=== PATIENT | female | born 1995 | race Caucasian/White ===

== ENCOUNTER → 2016-06-19 | Day surgery (SDC) | payer BC ==
[~2016-06-19] MED LIST: FENTANYL PF 100 MCG/2 ML VIAL. IV PRN; IV RINGERS,LACTATED 1000ML 1,000 ML IV SCH; LIDOCAINE 1% 1 ML SYRINGE. ID PRN; LIDOCAINE 2% PF Vial for OR 5 ML VIAL. ONE; MIDAZOLAM HCL 2 MG/2 ML VIAL. IV PRN; PROM50SU7 RC; PROPOFOL 20 ML IV ONE; VANC125C2 PO
[2016-06-19 12:49] LABS: NEG OBC UR NEG; POS OBC UR POS
[2016-06-19 14:09] VITALS: BP 110/60
--- NOTE | 2016-06-20 05:12 | HP ---
ADMIT DATE: 06/19/2016 REFERRING PHYSICIAN: Ciara Holt APRN HISTORY OF PRESENT ILLNESS: A 21-year-old female whose past medical history is significant for C. diff colitis, anemia and recurrent nausea and vomiting associated with persistent upper abdominal pain. It is associated with speech therapist early intervention emesis. Prior colonoscopy and CT scan have been unrevealing ____. Family history is noted for diabetes, but negative for gallbladder disease. test has been negative. ____ has also noted minimal heartburn is present with continued emesis in the morning. The patient had previously undergone hepatobiliary imaging, which did not reveal any pathology with the ultrasound or PIPIDA scan, although the patient states that she did have increased nausea with Kinevac injection raising the question of chronic cholecystitis. Upper endoscopy today to further assess prior to possible and potential lap alicia. PAST MEDICAL HISTORY: C. diff, anemia, nausea, vomiting. ALLERGIES: LATEX. MEDICATIONS: Include promethazine and vancomycin. FAMILY AND SOCIAL HISTORY: Significant for diabetes and hypertension. REVIEW OF SYSTEMS: Per records. PHYSICAL EXAMINATION: GENERAL: Reveals a well-nourished, well-developed female who is alert, cooperative, is in mild distress. VITAL SIGNS: Temp is 98.5, pulse is 90, respiratory rate is 20. HEENT: Normocephalic, atraumatic head. Pupils and extraocular movements not tested. Sclerae anicteric. NECK: Supple. LUNGS: Clear. CARDIOVASCULAR: Reveals S1, S2 without S3, S4 or appreciable murmur. ABDOMEN: Reveals a soft abdomen, normal bowel sounds, without appreciable hepatosplenomegaly. EXTREMITIES: Reveals no cyanosis, clubbing or edema. IMPRESSION: Epigastric abdominal pain with recurrent nausea and vomiting. Differential includes gastroparesis, celiac disease, peptic ulcer disease, chronic cholecystitis. Therefore, recommend upper endoscopy to further assess symptoms. Risks and benefits of procedure including risk of hemorrhage or perforation during the operation have been discussed. The patient is willing to proceed at this time. I would like to thank Ciara Holt for allowing us to consult and participate in the patient's care. ELYSSA DURAN MD DR: KRYSTA/oksana JOB#: [id number] / [id number]
== END | disposition home or self-care (01) ==
LOC: ENDOS 12:06
PROVIDERS: ATTEND Internal Medicine Gastroenterology
DX: K29.50 Unspecified chronic gastritis without bleeding (principal); K31.9 Disease of stomach and duodenum, unspecified; J45.909 Unspecified asthma, uncomplicated; F32.9 Major depressive disorder, single episode, unspecified; D64.9 Anemia, unspecified; Z87.39 Personal history of other diseases of the musculoskeletal system and connective tissue
CPT/HCPCS: 43239; 81025; J2704

== ENCOUNTER → 2016-09-26 | Outpatient (CLI) | payer BC ==
[2016-06-19 14:09] VITALS: BP 110/60
[~2016-09-26] MED LIST changes: -FENTANYL PF 100 MCG/2 ML VIAL. IV PRN; -IV RINGERS,LACTATED 1000ML 1,000 ML IV SCH; -LIDOCAINE 1% 1 ML SYRINGE. ID PRN; -LIDOCAINE 2% PF Vial for OR 5 ML VIAL. ONE; -MIDAZOLAM HCL 2 MG/2 ML VIAL. IV PRN; -PROPOFOL 20 ML IV ONE
--- NOTE | 2016-09-26 14:16 | RAD ---
Indication patient reports lumps at the 25 and 6:00 position of the left breast. Targeted ultrasound was performed. The examination was targeted to the areas of concern in the left breast. At the 2, 5 and 6:00 positions of the left breast, where the patient reports palpable abnormalities, no abnormality is seen. No dominant mass or abnormality on ultrasound is seen. IMPRESSION: Normal targeted ultrasound evaluation of the left breast. If there is a discrete, palpable, mass in either breast biopsy may be warranted despite unremarkable imaging
== END | disposition home or self-care (01) ==
LOC: US 13:35
PROVIDERS: ATTEND Nurse Practitioner Family
DX: N63 Unspecified lump in breast (principal)
CPT/HCPCS: 76641

== ENCOUNTER → 2021-04-17 | Outpatient (CLI) | payer BC, OTHER ==
[2016-06-19 14:09] VITALS: BP 110/60
[~2021-04-17] MED LIST changes: -VANC125C2 PO; +VANC125C3 PO
--- NOTE | 2021-04-17 10:56 | RAD ---
EXAM: Nuclear hepatobiliary scan. HISTORY: Right upper quadrant pain. Nausea and vomiting. TECHNIQUE: Following intravenous administration of 5.3 mCi Tc 99m Choletec, anterior images of the ab domen were obtained at five minute intervals through one hour. Subsequently, 8 ounces Ensure drink wa s ingested and additional images to assess gallbladder ejection fraction were obtained. FINDINGS: There is prompt radiotracer uptake by the liver. No focal defect is seen. There is normal e xcretion into the biliary tree. The gallbladder is visualized within 10 minutes and there is free dionna w into the duodenum. The gallbladder ejection fraction is 4 percent. IMPRESSION: Severely decreased gallbladder ejection fraction of 4 percent. Electronically signed by: Maria Luisa Hodgson MD (04/17/2021 10:54 AM) [id number]
== END ==
LOC: NM 08:52
PROVIDERS: ATTEND Family Medicine
DX: R93.89 Abnormal findings on diagnostic imaging of other specified body structures (principal)
CPT/HCPCS: 78227; A9537

== ENCOUNTER → 2021-05-15 | Outpatient (CLI) | payer BC ==
[2016-06-19 14:09] VITALS: BP 110/60
--- NOTE | 2021-05-15 09:40 | KCIC ---
EXAM: Brain MRI without contrast. HISTORY: Seizure. TECHNIQUE: Multiplanar, multisequence magnetic resonance imaging of the brain was performed without i ntravenous contrast. COMPARISON: None. FINDINGS: There is no restricted diffusion to suggest acute or subacute infarction. There is no mass effect or midline shift. There is no hydrocephalus. There is no suspicious white matter lesion. There is no heterotopia or malformation of cortical devel opment. The hippocampi demonstrate symmetric size and signal. The orbits are unremarkable. There is mild paranasal sinus mucosal thickening. The mastoid air cells are clear. There are normal flow voids within the cerebral vessels. There is no suspicious calvarial lesion. There are low-lying cerebellar tonsils, not within limits for a Chiari malformation. There is no hemorrhage. IMPRESSION: No acute intracranial finding or epileptogenic lesion. Electronically signed by: Maria Luisa Hodgsno MD (05/15/2021 9:38 AM) [id number]
== END ==
LOC: KCIC MRI 08:30
PROVIDERS: ATTEND Nurse Practitioner Family
DX: J34.89 Other specified disorders of nose and nasal sinuses (principal); R56.9 Unspecified convulsions
CPT/HCPCS: 70551